=== PATIENT | female | born 1950 | race Caucasian/White ===

== ENCOUNTER 2019-04-30 21:34 | Emergency (ER) | payer OTHER ==
[~2019-04-30] VITALS: Ht 162.6 cm; Wt 65.8 kg
[2019-04-30 21:44] VITALS: Ht 162.6 cm; Wt 65.8 kg
[2019-04-30 22:47] LABS: BASOPHIL % 0.3 % (0-2); PLATELET COUNT 238 x10^3mcL (130-400); RED CELL DISTRIBUTION WIDTH 13.6 % (11.5-14.5)
[2019-04-30 22:59] LABS: CALCIUM 9.3 mg/dL (8.5-10.1); CARBON DIOXIDE 27.2 mmol/L (21-32); CREATININE SERUM 1.1 mg/dL (0.6-1.0); POTASSIUM SERUM 3.5 mmol/L (3.5-5.1)
[2019-04-30 23:12] LABS: ALBUMIN 3.9 g/dL (3.4-5.0); BILIRUBIN TOTAL 0.26 mg/dL (0.20-1.00); T4(THYROXINE) 6.6 ug/dL (4.7-13.3); TOTAL PROTEIN, SERUM 6.8 g/dL (6.4-8.2)
[2019-05-01 00:38] VITALS: BP 119/62
== END 2019-05-01 00:38 | disposition left against medical advice (07) ==
LOC: ED 21:34
PROVIDERS: Emergency Medicine
DX: I48.91 Unspecified atrial fibrillation (principal); E11.9 Type 2 diabetes mellitus without complications; I10 Essential (primary) hypertension; J45.909 Unspecified asthma, uncomplicated; Z98.890 Other specified postprocedural states; Z90.710 Acquired absence of both cervix and uterus; Z88.0 Allergy status to penicillin; Z88.2 Allergy status to sulfonamides; Z91.012 Allergy to eggs; Z88.5 Allergy status to narcotic agent
CPT/HCPCS: 82962; 83880; J3490; J7030; Q0092

== ENCOUNTER 2020-07-25 23:21 | Emergency (ER) | payer BC, OTHER ==
[~2020-07-25] VITALS: Ht 167.6 cm; Wt 65.8 kg
[2020-07-25 23:51] VITALS: Ht 167.6 cm; Wt 65.8 kg
[2020-07-26 00:57] VITALS: BP 155/59
== END 2020-07-26 00:57 | disposition home or self-care (01) ==
LOC: ED 23:21
DX: E11.649 Type 2 diabetes mellitus with hypoglycemia without coma (principal); I10 Essential (primary) hypertension; J45.909 Unspecified asthma, uncomplicated; Z98.890 Other specified postprocedural states; Z88.0 Allergy status to penicillin; Z91.012 Allergy to eggs
CPT/HCPCS: 82962